=== PATIENT | female | born 1950 | race Caucasian/White ===

== ENCOUNTER 2016-07-14 17:53 | Inpatient (IN) | payer OTHER ==
[~2016-07-14] VITALS: Ht 152.4 cm; Wt 77.7 kg
[2016-07-14] MEDS ORDERED: LANTUS 3 M100 UNITS1 SC (19:24)
[2016-07-14] MEDS ORDERED: NOVOLOG PE100 UNITS/ SC (19:24)
[2016-07-14] MEDS ORDERED: METFORMIN HCL500 MG PO (19:25)
[2016-07-14] MEDS ORDERED: LISINOPRIL5 MG PO (19:25)
[2016-07-14] MEDS ORDERED: TOPROL XL50 MG PO (19:26)
[2016-07-14] MEDS ORDERED: ASPIRIN325 MG PO (19:26)
[2016-07-14] MEDS ORDERED: CENTRUM SILVER1 EAC4 PO (19:26)
[2016-07-14] MEDS ORDERED: PRILOSEC20 MG PO (19:27)
[2016-07-14] MEDS ORDERED: B-COMPLEX-VITA1 EACH PO (19:28)
[2016-07-14] MEDS ORDERED: CO Q-10200 MG PO (19:28)
[2016-07-14] MEDS ORDERED: VITAMIN D2000 UNIT PO (19:28)
[2016-07-14] MEDS ORDERED: LORADAMED10 MG PO (19:29)
[2016-07-14] MEDS ORDERED: NORCO 5/3251 TABLET PO (19:29)
[2016-07-14 20:34] LABS: WHITE BLOOD COUNT 7.4 K/uL (4.1-10.2)
[2016-07-14 20:35] LABS: HEMATOCRIT 35.6 % (36.0-46.0); MCH 29.6 PG (29.0-34.0); MCHC 32.6 G/DL (30.0-36.0); MCV 90.8 FL (83-99); RED BLOOD COUNT 3.92 M/uL (3.80-5.20)
[2016-07-14 20:36] LABS: PLATELET COUNT 191 K/uL (156-360); RBC DIS.WIDTH-CV 12.8 % (11.8-14.6); RBC DIS.WIDTH-SD 42.3 % (39-53)
[2016-07-14 20:37] LABS: MEAN PLAT.VOLUME 10.5 uM^3 (9.5-12.4)
[2016-07-14 20:47] LABS: PROTHROMBIN TIME 10.6 (9.2-11.2)
[2016-07-14 20:59] LABS: CHLORIDE 104 mEq/L (99-109); POTASSIUM 4.1 mEq/L (3.7-5.4); SODIUM 141 mEq/L (136-147)
[2016-07-14 21:01] LABS: GLUCOSE 168 mg/dL (70-99)
[2016-07-14 21:01] LABS: CHLORIDE 103 mEq/L (99-109); POTASSIUM 4.1 mEq/L (3.7-5.4); SODIUM 139 mEq/L (136-147)
[2016-07-14 21:02] LABS: GLUCOSE 168 mg/dL (70-99)
[2016-07-14 21:02] LABS: ANION GAP 10 MEQ/L (2-14)
[2016-07-14 21:03] LABS: TOTAL BILIRUBIN 0.2 mg/dL (0.0-1.0)
[2016-07-14 21:04] LABS: ANION GAP 8 MEQ/L (2-14)
[2016-07-14 21:05] LABS: ALKALINE PHOSPHATASE 66 IU/L (3-129); GFR ESTIMATE (CALCULATED) > 59 mL/min/
[2016-07-14 21:06] LABS: UREA NITROGEN (BUN) 18 mg/dL (9-23)
[2016-07-14 21:06] LABS: GFR ESTIMATE (CALCULATED) > 59 mL/min/
[2016-07-14 21:07] LABS: UREA NITROGEN (BUN) 18 mg/dL (9-23)
[2016-07-14 21:22] VITALS: BP 170/80
[2016-07-14 22:11] LABS: EOSINOPHIL (%) 2.9 % (0-5); EOSINOPHIL COUNT 0.2 K/uL (0-0.3); HEMATOCRIT 36.5 % (36.0-46.0); IMMATURE GRANULOCYTE (%) 0.1 % (0.0-0.7); LYMPHOCYTE COUNT 2.2 K/uL (1.0-2.8); MCH 29.9 PG (29.0-34.0); MCHC 32.6 G/DL (30.0-36.0); MCV 91.7 FL (83-99); MEAN PLAT.VOLUME 11.4 uM^3 (9.5-12.4); MONOCYTE (%) 8.4 % (3-12); MONOCYTE COUNT 0.6 K/uL (0-0.8); NEUTROPHIL (%) 58.2 % (45-76); NEUTROPHIL COUNT 4.2 K/uL (1.8-6.4); PLATELET COUNT 192 K/uL (156-360); RBC DIS.WIDTH-CV 13.1 % (11.8-14.6); RBC DIS.WIDTH-SD 43.9 % (39-53); RED BLOOD COUNT 3.98 M/uL (3.80-5.20); WHITE BLOOD COUNT 7.2 K/uL (4.1-10.2)
[2016-07-14 22:36] LABS: ALKALINE PHOSPHATASE 63 IU/L (3-129); ANION GAP 9 MEQ/L (2-14); CHLORIDE 101 MEQ/L (99-109); GFR ESTIMATE (CALCULATED) > 59 mL/min/; POTASSIUM 3.9 MEQ/L (3.7-5.4); SAMPLE HEMOLYSIS CHECK 0; SAMPLE ICTERIC CHECK 0; SAMPLE LIPEMIA CHECK 0; SODIUM 139 MEQ/L (136-147); TOTAL BILIRUBIN 0.4 MG/DL (0.0-1.0); UREA NITROGEN (BUN) 17 mg/dL (9-23)
[2016-07-14 22:41] LABS: GLUCOSE 260 mg/dL (70-99)
[2016-07-14 23:50] LABS: ADD MIUA? YES; BILIRUBIN NEGATIVE; BLOOD MODERATE; COLOR STRAW ((YELLOW)); GLUCOSE (STRIP) >=500; KETONES NEGATIVE; LEUKOCYTES NEGATIVE; NITRITE NEGATIVE; PROTEIN (STRIP) NEGATIVE; SPECIFIC GRAVITY 1.006 (1.000-1.030); UROBILINOGEN 0.2 MG/DL (0.2-1.0)
[2016-07-14 23:54] VITALS: BP 172/79
[2016-07-14 23:54] LABS: BACTERIA NONE SEEN /HPF; EPITHELIAL CELLS RARE /HPF; MUCUS NONE SEEN /LPF; RED BLOOD CELLS 30-40 /HPF (0-5); UCUL ADDED? NO; WHITE BLOOD CELLS 0-5 /HPF (0-5)
[2016-07-15 00:01] VITALS: BP 139/83
[2016-07-15 04:04] VITALS: BP 142/78
[2016-07-15 07:42] VITALS: BP 138/86
[2016-07-15 07:49] LABS: POINT-OF-CARE METER ID UU13113717
[2016-07-15 16:33] VITALS: BP 179/79
[2016-07-15 21:24] LABS: POINT-OF-CARE METER ID UU14188577
[2016-07-16] VITALS: BP 172/81
[2016-07-16 04:00] VITALS: BP 184/77
[2016-07-16 11:03] LABS: POINT-OF-CARE METER ID UU13113675
[2016-07-16 12:28] VITALS: BP 134/60
[2016-07-16 16:37] VITALS: BP 140/60
[2016-07-16 17:04] LABS: POINT-OF-CARE METER ID UU14188577
[2016-07-16 20:07] VITALS: BP 130/58
[2016-07-16 22:15] LABS: POINT-OF-CARE METER ID UU14188577
[2016-07-16 23:40] VITALS: BP 123/58
[2016-07-17 04:07] VITALS: BP 120/56
[2016-07-17 07:59] VITALS: BP 145/69
[2016-07-17 15:49] VITALS: BP 130/75
[2016-07-17 20:33] VITALS: BP 130/58
[2016-07-17 21:51] LABS: POINT-OF-CARE METER ID UU14188577
[2016-07-18] VITALS (15 sets, daily range): BP systolic 0–134; BP diastolic 0–69
[2016-07-18 08:02] LABS: ANION GAP 12 MEQ/L (2-14); CHLORIDE 101 MEQ/L (99-109); GFR ESTIMATE (CALCULATED) > 59 mL/min/; GLUCOSE 188 mg/dL (70-99); POTASSIUM 4.3 MEQ/L (3.7-5.4); SAMPLE HEMOLYSIS CHECK 0; SAMPLE ICTERIC CHECK 0; SAMPLE LIPEMIA CHECK 0; SODIUM 136 MEQ/L (136-147); UREA NITROGEN (BUN) 22 mg/dL (9-23)
[2016-07-18 09:58] LABS: TROP-I INTERPRETATION NEGATIVE; TROPONIN-I 0.08 ng/mL (0.0-0.30)
[2016-07-18 11:37] LABS: POINT-OF-CARE METER ID UU13113714; POINT-OF-CARE USER ID ENVKLS06
[2016-07-18 11:55] LABS: POINT-OF-CARE METER ID UU14149397
[2016-07-18 14:18] LABS: POINT-OF-CARE METER ID UU14162636
[2016-07-18 15:38] LABS: TROP-I INTERPRETATION POSITIVE
[2016-07-18 15:57] LABS: TROPONIN-I 0.63 ng/mL (0.0-0.30)
[2016-07-18 17:27] LABS: METH RESISTANT S AUREUS PCR NEGATIVE (NEGATIVE)
[2016-07-18 17:28] LABS: PROBE CHECK PASS; SPECIMEN PROCESSING CONTROL PASS
[2016-07-18 17:41] LABS: POINT-OF-CARE METER ID UU14162636
[2016-07-18 23:30] LABS: TROP-I INTERPRETATION POSITIVE
[2016-07-18 23:32] LABS: TROPONIN-I 1.15 ng/mL (0.0-0.30)
[2016-07-19] VITALS (9 sets, daily range): BP systolic 109–164; BP diastolic 48–72
[2016-07-19 08:27] LABS: POINT-OF-CARE METER ID UU14162636
[2016-07-19 10:59] LABS: Estimated Average Glucose 183 mg/dL (70-123)
[2016-07-19 15:44] LABS: TROP-I INTERPRETATION POSITIVE
[2016-07-19 15:45] LABS: TROPONIN-I 0.78 ng/mL (0.0-0.30)
[2016-07-19 22:36] LABS: POINT-OF-CARE METER ID UU14188577
[2016-07-20 04:30] VITALS: BP 146/70
[2016-07-20 06:21] LABS: POINT-OF-CARE METER ID UU14188577
[2016-07-20 07:24] VITALS: BP 135/82
[2016-07-20 08:06] LABS: ANION GAP 10 MEQ/L (2-14); CHLORIDE 100 MEQ/L (99-109); GFR ESTIMATE (CALCULATED) > 59 mL/min/; GLUCOSE 174 mg/dL (70-99); MAGNESIUM 1.5 mg/dl (1.3-2.7); POTASSIUM 4.1 MEQ/L (3.7-5.4); SAMPLE HEMOLYSIS CHECK 0; SAMPLE ICTERIC CHECK 0; SAMPLE LIPEMIA CHECK 0; SODIUM 137 MEQ/L (136-147); UREA NITROGEN (BUN) 15 mg/dL (9-23)
[2016-07-20 08:22] LABS: EOSINOPHIL (%) 2.4 % (0-5); EOSINOPHIL COUNT 0.2 K/uL (0-0.3); HEMATOCRIT 29.7 % (36.0-46.0); IMMATURE GRANULOCYTE (%) 0.1 % (0.0-0.7); IMMATURE GRANULOCYTE COUNT 0.1 K/uL; MCH 29.7 PG (29.0-34.0); MCHC 32.7 G/DL (30.0-36.0); MCV 90.8 FL (83-99); MEAN PLAT.VOLUME 11.7 uM^3 (9.5-12.4); MONOCYTE (%) 9.9 % (3-12); MONOCYTE COUNT 0.9 K/uL (0-0.8); NEUTROPHIL (%) 77.3 % (45-76); NEUTROPHIL COUNT 7.3 K/uL (1.8-6.4); PLATELET COUNT 207 K/uL (156-360); RBC DIS.WIDTH-CV 12.9 % (11.8-14.6); RBC DIS.WIDTH-SD 41.7 % (39-53); RED BLOOD COUNT 3.27 M/uL (3.80-5.20)
[2016-07-20 08:25] LABS: WHITE BLOOD COUNT 9.4 K/uL (4.1-10.2)
[2016-07-20 11:17] VITALS: BP 168/67
[2016-07-20 11:51] LABS: POINT-OF-CARE METER ID UU14188577
[2016-07-20 16:00] VITALS: BP 158/70
[2016-07-20 16:53] LABS: POINT-OF-CARE METER ID UU14188577
[2016-07-20 21:54] VITALS: BP 150/68
[2016-07-20 21:55] LABS: POINT-OF-CARE METER ID UU14188577
[2016-07-20 23:38] VITALS: BP 160/70
[2016-07-21 04:23] VITALS: BP 176/77
[2016-07-21 06:28] LABS: HEMATOCRIT 30.8 % (36.0-46.0); MCH 28.9 PG (29.0-34.0); MCHC 32.1 G/DL (30.0-36.0); MCV 89.8 FL (83-99); MEAN PLAT.VOLUME 11.1 uM^3 (9.5-12.4); PLATELET COUNT 235 K/uL (156-360); RBC DIS.WIDTH-SD 42.3 % (39-53); RED BLOOD COUNT 3.43 M/uL (3.80-5.20)
[2016-07-21 06:31] LABS: WHITE BLOOD COUNT 5.9 K/uL (4.1-10.2)
[2016-07-21 06:34] LABS: ANION GAP 9 MEQ/L (2-14); CHLORIDE 100 MEQ/L (99-109); GFR ESTIMATE (CALCULATED) > 59 mL/min/; GLUCOSE 175 mg/dL (70-99); MAGNESIUM 1.6 mg/dl (1.3-2.7); SAMPLE HEMOLYSIS CHECK 0; SAMPLE ICTERIC CHECK 0; SAMPLE LIPEMIA CHECK 0; SODIUM 140 MEQ/L (136-147); UREA NITROGEN (BUN) 13 mg/dL (9-23)
[2016-07-21 07:13] LABS: POINT-OF-CARE METER ID UU14188577
[2016-07-21 07:50] VITALS: BP 160/69
[2016-07-21 15:44] VITALS: BP 142/65
[2016-07-21 16:02] VITALS: BP 158/65
[2016-07-21 16:48] LABS: POINT-OF-CARE METER ID UU14188577
[2016-07-21 19:35] VITALS: BP 134/58
[2016-07-22 00:45] VITALS: BP 147/65
[2016-07-22 03:35] VITALS: BP 155/71
[2016-07-22 06:44] LABS: POINT-OF-CARE METER ID UU14149397
[2016-07-22 08:28] VITALS: BP 185/74
[2016-07-22 11:30] VITALS: BP 143/69
[2016-07-22 12:06] LABS: POINT-OF-CARE METER ID UU14149397
[2016-07-22] MEDS ORDERED: CHLORZOXAZONE500 MG PO (13:21)
[2016-07-22] MEDS ORDERED: LISINOPRIL20 MG PO (13:21)
[2016-07-22] MEDS ORDERED: TOPROL XL50 MG PO (13:23)
[2016-07-22 16:30] VITALS: BP 187/73
[2016-07-22 16:47] LABS: POINT-OF-CARE METER ID UU14149397
[2016-07-22 19:31] VITALS: BP 154/68
[2016-07-23 00:12] VITALS: BP 178/72
[2016-07-23 04:21] VITALS: BP 177/88
[2016-07-23 08:05] VITALS: BP 134/63
[2016-07-23 11:30] VITALS: BP 176/71
[2016-07-23 11:39] LABS: POINT-OF-CARE METER ID UU14149397
[2016-07-23 16:30] VITALS: BP 143/62
[2016-07-23 16:39] LABS: POINT-OF-CARE METER ID UU14149397
[2016-07-23 21:29] LABS: POINT-OF-CARE METER ID UU14149397
[2016-07-23 23:53] VITALS: BP 167/67
[2016-07-24 07:57] LABS: POINT-OF-CARE METER ID UU14188577
[2016-07-24 08:30] VITALS: BP 139/80
[2016-07-24 14:27] LABS: ANION GAP 8 MEQ/L (2-14); CHLORIDE 96 MEQ/L (99-109); GFR ESTIMATE (CALCULATED) > 59 mL/min/; GLUCOSE 357 mg/dL (70-99); POTASSIUM 4.4 MEQ/L (3.7-5.4); SAMPLE HEMOLYSIS CHECK 0; SAMPLE ICTERIC CHECK 0; SAMPLE LIPEMIA CHECK 0; SODIUM 135 MEQ/L (136-147); UREA NITROGEN (BUN) 17 mg/dL (9-23)
[2016-07-24 16:30] VITALS: BP 151/70
[2016-07-24 21:53] LABS: POINT-OF-CARE METER ID UU14149397
[2016-07-25 00:13] VITALS: BP 143/62
[2016-07-25 07:10] VITALS: BP 141/61
[2016-07-25 07:46] LABS: POINT-OF-CARE METER ID UU14149397
[2016-07-25 07:52] VITALS: BP 122/62
[2016-07-25 11:27] LABS: POINT-OF-CARE METER ID UU14149397
[2016-07-25 11:31] VITALS: BP 126/62
[2016-07-25] MEDS ORDERED: NORCO 5/3251 TABLET PO (12:39)
== END 2016-07-25 15:39 | DRG 471 ==
LOC: EME 17:53 → EXP 17:53 → EDOF 19:21 → 3EAST 19:21 → 4WEST 07-18 11:47 → 3EAST 07-19 18:17
PROVIDERS: Hospitalist; Internal Medicine; Internal Medicine Endocrinology, Diabetes & Metabolism; Neurological Surgery; Physician Assistant; Physician Assistant Surgical
DX: M50.021 Cervical disc disorder at C4-C5 level with myelopathy (principal); R53.2 Functional quadriplegia; G95.89 Other specified diseases of spinal cord; I24.8 Other forms of acute ischemic heart disease; I48.0 Paroxysmal atrial fibrillation; R00.0 Tachycardia, unspecified; I95.9 Hypotension, unspecified; R13.10 Dysphagia, unspecified; K20.9 Esophagitis, unspecified; E87.70 Fluid overload, unspecified; E11.65 Type 2 diabetes mellitus with hyperglycemia; E11.40 Type 2 diabetes mellitus with diabetic neuropathy, unspecified; Q24.0 Dextrocardia; I10 Essential (primary) hypertension; I25.10 Atherosclerotic heart disease of native coronary artery without angina pectoris; I25.2 Old myocardial infarction; E78.5 Hyperlipidemia, unspecified; E66.9 Obesity, unspecified; Z95.1 Presence of aortocoronary bypass graft; Z95.5 Presence of coronary angioplasty implant and graft; Z79.4 Long term (current) use of insulin; Z68.28 Body mass index [BMI] 28.0-28.9, adult
CPT/HCPCS: 71020; 71275; 72040; 76000; 80048; 80053; 81003; 82948; 83036; 83735; 84443; 84484; 85025; 85027; 85049; 85610; 86850; 86900; 86901; 87641; 93005; 93306; 94799; 97530 GP; 99281; 99285; C1713; J0330; J1170; J1644; J1815; J2250; J2405; J2765; J3010; J3370; J3475; J3480; J7030; J7040